=== PATIENT | male | born 1985 | race Caucasian/White ===

== ENCOUNTER 2019-10-20 19:46 | Inpatient (IN) ==
[2019-10-20] MEDS ORDERED: ONDANSETRON INJ 2 MG/ML 2 ML VIAL IV STA ×2 (19:58→21:11)
[2019-10-20] MEDS ORDERED: HYDROmorphone INJ 0.5 MG/0.5 ML SYR IV STA ×2 (19:58→21:49)
[2019-10-20] MEDS ORDERED: HYDROmorphone INJ 1 MG/ML SYRINGE IV STA (21:11)
[2019-10-20] MEDS ORDERED: SODIUM CHLORIDE 0.9% 1000ML 1,000 ML IV SCH (21:45)
[2019-10-20] MEDS ORDERED: KETOROLAC TROMETHAMINE 15 MG/ML VIAL IV STA (21:55)
[2019-10-20 22:45] LABS: Appearance Urine Cloudy (Clear); Bacteria Urine Automated Negative (Negative); Blood Urine 3+ (Negative); Color Urine Dark Yellow; Glucose Urine UA 1+ (Negative); Ketones Urine 1+ (Negative); Leukocyte Esterase Urine Negative (Negative); Nitrite Urine Negative (Negative); Protein Urine 1+ (Negative); RBC Urine Automated >30 /hpf (0-4); Specific Gravity Urine 1.032 (1.000-1.030); Urobilinogen Urine Negative (Negative); pH Urine 5.5 (4.5-7.5)
[2019-10-20 23:05] LABS: Bilirubin Urine Negative (Negative); Ictotest Urine Negative (Negative)
--- NOTE | 2019-10-20 23:32 | Emergency Department Note ---
History of Present Illness General Chief complaint: Kidney Stone Stated complaint: KIDNEY STONE Time Seen by Provider: 10/20/19 19:53 History of Present Illness Maximum Pain Intensity: 6 This is a 34-year-old male that presents to the emergency department via private vehicle with complaints of "kidney stone". The patient notes that he was here earlier today and diagnosed with a kidney stone. He states that he was doing well and was pain-free. He then notes about 2 hours prior to arrival the second time here today he notes the pain sharply increased. He rates the overall discomfort at this time as an 8/10. He points to the left flank that radiates to the left groin. It is sharp in nature. Discomfort overall is an 8/10 but will increase at times. He also vomited secondary to the pain. He does note a history of kidney stones in the past but has not had to see urology as of yet. Home Medications Home Medications Medication Instructions Recorded Confirmed Type cetirizine [Zyrtec] 10 mg PO DAILY PRN 10/20/19 10/20/19 History fluticasone propionate 2 spray INTRANASAL DAILY PRN 10/20/19 10/20/19 History ketorolac 10 mg PO Q6H PRN 10/20/19 10/20/19 History tamsulosin [Flomax] 0.4 mg PO DAILY #5 cap 10/20/19 10/20/19 Rx Allergies Allergy/AdvReac Type Severity Reaction Status Date / Time No Known Allergies Allergy Verified 10/20/19 20:35 Past Med/Surg History Medical History Personal history of kidney stones Surgical History No pertinent past surgical history Social History Preferred Language: Mosotho Communication Ability: Effective Stamp Maker Required: No Beliefs That Will Affect Care: None Current Living Situation: Spouse and Family Other Information That Helps Us Care for You: No Feels Safe at Home: Yes Safety Concerns: Feels Safe At This Time Smoking Status: Never smoker Do You Dip or Chew Tobacco: No ; Second Hand Exposure: No ; Hx Alcohol Use: Yes Alcohol type: beer, wine and hard liquor Hx Substance Use: No Review of Systems A total of 10 systems reviewed and were otherwise negative Physical Exam Vital Signs Vital Signs - 24 hr 10/20/19 19:47 10/20/19 21:35 10/20/19 22:47 Temperature 37.4 C Temperature Source Oral Pulse Rate 106 H 69 Pulse Rate [Radial] 71 69 Pulse Rhythm Regular Pulse Rhythm [Radial] Regular Regular Pulse Strength [Radial] Normal Respiratory Rate 20 18 16 Respiratory Effort / Characteristics Non-Labored Spontaneous Non-Labored Spontaneous Non-Labored Spontaneous Respiratory Depth Normal Normal Normal Respiratory Pattern Regular Regular Blood Pressure 157/98 H Blood Pressure [Right Arm] 141/95 H 129/83 Blood Pressure Mean 117 Blood Pressure Mean [Right Arm] 110 98 Blood Pressure Position Sitting Pulse Oximetry 99 96 97 Oxygen Delivery Method Room Air Room Air Nasal Cannula Oxygen Flow Rate 2 Sepsis Recent Fever Within 48 Hours No Sepsis Action Taken by Nursing No Action Required VITAL SIGNS - Vital signs and nursing notes were reviewed. Stable and afebrile. GENERAL -34-year-old male appearing his stated age who is in no acute distress. Communicates well with provider and answers questions appropriately. SKIN - Without rashes. No meningeal or petechial rash. LUNGS - Chest wall symmetric without accessory muscle use, intercostals retractions, or central cyanosis. Normal vesicular breath sounds CTA B/L. No wheezes, rales, or rhonchi appreciated. CARDIAC - RRR with S1/S2. No murmur, rubs, or gallops appreciated. ABDOMEN - Abdominal contour normal without pulsations or visible masses. BS normoactive all four quadrants. No tenderness, palpable masses, hepatosplenomegaly, or ascites noted. NEUROLOGIC - Cranial nerves II through XII grossly intact. PSYCH - A&O, and cooperates fully with examiner. Pt is very pleasant and interacts well with examiner. Course Administered Medications Sodium Chloride (Nss 1000ml) 1,000 mls @ 125 mls/hr IV .Q8H SCOTT Stop: 11/20/19 01:44 Last Admin: 10/21/19 01:58 Dose: 125 mls/hr Documented by: [id number] Discontinued Medications Hydromorphone HCl (Dilaudid) 0.5 mg IV NOW STA Stop: 10/20/19 19:59 Last Admin: 10/20/19 20:11 Dose: 0.5 mg Documented by: [id number] Hydromorphone HCl (Dilaudid) 1 mg IV NOW STA Stop: 10/20/19 21:12 Last Admin: 10/20/19 21:14 Dose: 1 mg Documented by: [id number] Hydromorphone HCl (Dilaudid) 0.5 mg IV NOW STA Stop: 10/20/19 21:50 Last Admin: 10/20/19 21:52 Dose: 0.5 mg Documented by: [id number] Hydromorphone HCl (Dilaudid) 0.5 mg IV NOW STA Stop: 10/21/19 00:33 Last Admin: 10/21/19 00:40 Dose: 0.5 mg Documented by: [id number] Sodium Chloride (Nss 1000ml) 1,000 mls @ 999 mls/hr IV .Q1H1M SCOTT Stop: 10/20/19 22:45 Last Infusion: 10/21/19 00:44 Dose: 0 mls/hr Documented by: [id number] Admin: 10/20/19 21:38 Dose: 999 mls/hr Documented by: [id number] Promethazine HCl (Phenergan) 12.5 mg in 50.5 mls @ 202 mls/hr IV NOW STA Stop: 10/21/19 00:48 Last Infusion: 10/21/19 01:26 Dose: 0 mls/hr Documented by: [id number] Admin: 10/21/19 01:11 Dose: 202 mls/hr Documented by: [id number] Ketorolac Tromethamine (Toradol) 15 mg IV NOW STA Stop: 10/20/19 21:56 Last Admin: 10/20/19 21:58 Dose: 15 mg Documented by: [id number] Ketorolac Tromethamine (Toradol) 30 mg IV NOW ONE Stop: 10/21/19 02:01 Last Admin: 10/21/19 01:52 Dose: 30 mg Documented by: [id number] Ondansetron HCl (Zofran) 4 mg IV NOW STA Stop: 10/20/19 19:59 Last Admin: 10/20/19 20:11 Dose: 4 mg Documented by: [id number] Ondansetron HCl (Zofran) 4 mg IV NOW STA Stop: 10/20/19 21:12 Last Admin: 10/20/19 21:14 Dose: 4 mg Documented by: [id number] Medical Decision Making Laboratory Data Lab Results 10/20/19 Range/Units 21:35 Urine Color Dark Yellow Urine Appearance Cloudy A (Clear) Urine pH 5.5 (4.5-7.5) Ur Specific [place] 1.032 H (1.000-1.030) Urine Protein 1+ H (Negative) Urine Glucose (UA) 1+ H (Negative) Urine Ketones 1+ H (Negative) Urine Blood 3+ H (Negative) Urine Nitrite Negative (Negative) Urine Bilirubin Negative (Negative) Urine Urobilinogen Negative (Negative) Ur Leukocyte Esterase Negative (Negative) Urine WBC (Auto) 1-5 (0-5) /hpf Urine RBC (Auto) >30 H (0-4) /hpf U Hyaline Cast (Auto) 1-5 (0-5) /lpf U Epithel Cells (Auto) 5-10 H (0-5) /lpf Urine Bacteria (Auto) Negative (Negative) MDM Narrative Patient was seen and evaluated as above in room C 12. Review was performed of nursing notes and vital signs. I did review pertinent previous visits and patient history. After obtaining a thorough history and physical examination the above work up was performed. He was seen here earlier today and has 2 obstructing ureteral calculi measuring up to 5 mm in size. He is nontoxic on examination and does have stable vital signs. I reviewed his previous laboratory work. Patient notes that when he was discharged earlier he was pain- free but the pain over the past 2 hours has been sharply increasing. Urine reveals some blood but no evidence of infection. Options of care were discussed with the patient and he has required several rounds of pain medication here with minimal relief of discomfort. For this reason patient was in agreement for further evaluation and management here in the inpatient setting. Case discussed with the hospitalist. Please refer to further documentation regarding his stay. In the evaluation and treatment of this patient the following differential diagnoses were entertained: UTI, pyelonephritis, obstructing calculi, torsion, appendicitis, diverticulitis, among others. Impression & Plan Calculus of distal left ureter, Intractable pain Discharge Plan Visit Data *Final* Discharge Date/Time: 10/21/19 00:36 Chief Complaint: Kidney Stone Stated Complaint: KIDNEY STONE ED Provider: Stevenson Rhodes ED Midlevel Provider: Tony Costa Discharge Problem: Calculus of distal left ureter, Intractable pain Patient Disposition: Admitted As Inpatient Condition: Good Discharge Instructions Interventions: ED Discharge Assessment Last Done: 10/21/19 00:36
[2019-10-21] MEDS ORDERED: HYDROmorphone INJ 0.5 MG/0.5 ML SYR IV STA (00:32)
[2019-10-21] MEDS: PROMETHAZINE 12.5 MG/50.5 ML BAG IV STA ×2 (00:42→01:11)
--- NOTE | 2019-10-21 01:25 | History and Physical Report ---
DATE OF ADMISSION: 10/20/2019 CHIEF COMPLAINT: Left flank pain. HISTORY OF PRESENT ILLNESS: This is a 34-year-old male with past medical history significant for kidney stones in 2007, which he passed on his own. No other significant past medical history, presents with left flank pain. The patient was in the ER early in the morning, a CAT scan showed two 5 mm distal ureter calculus, improved in the ER and no signs of infection. He was discharged on Flomax and Toradol, but the pain came back and it was severe, so he came back to the ER and received few doses of Dilaudid, the pain is better now, but is coming back.He is hemodynamically stable. UA is negative for infection currently. Denies any other complaints. About a week ago he noticed some tingliness in the tip of his penis and frequent urination, but no blood in the urine. Normal bowel movements. No chest pain, no shortness of breath, no cough, was nauseous earlier when the pain was severe. No headache, no blurred vision, no earache, no runny nose, no sore throat. ALLERGIES: No known drug allergies. PAST MEDICAL HISTORY: As mentioned above. PAST SURGICAL HISTORY: Dental surgery. MEDICATIONS: Flonase. FAMILY HISTORY: Significant for father has hypertension. Maternal grandfather had abdominal cancer, [place]. Paternal grandfather has heart disorder. SOCIAL HISTORY: Single. No smoking, alcohol socially. No drug use. REVIEW OF SYMPTOMS: As per HPI. Rest of review of symptoms negative. PHYSICAL EXAMINATION: GENERAL: The patient is of moderate build, not in acute distress. VITAL SIGNS: Temperature 37.4, pulse 69, respiratory rate 18, blood pressure 129/83, oxygen 97% on 2 liters. HEENT: No pallor, no icterus. Pupils equal, round, reactive to light. NECK: No JVD, no neck masses. CARDIOVASCULAR: S1, S2 heard, regular rate and rhythm, no murmur, no gallop. RESPIRATORY SYSTEM: Normal AP diameter. No accessory muscle use. No wheezing, no crackles. ABDOMEN: Soft, bowel sounds present. Nontender. No CVA tenderness present. CENTRAL NERVOUS SYSTEM: Cranial nerves II-XII grossly intact. Nonfocal. EXTREMITIES: No edema, no erythema. LABORATORY DATA: Urinalysis +1 protein, +1 glucose, +3 blood. Labs done early in the morning showed WBC 8.6, hemoglobin 17.3, hematocrit 49.6, platelets 165. Sodium 141, potassium 4, chloride 111, bicarbonate 27, BUN 14, creatinine 1.2, serum glucose 85, total bilirubin 0.6, calcium 9, AST 11, ALT 30, alkaline phosphatase 107. Lipase 162. CT scan shows two obstructing calculi in distal left ureter measuring up to 5 mm, only mild fullness of the left ureter and there is no hydronephrosis, there is a punctate nonobstructing right renal calculus, prominent mesenteric lymph nodes are nonspecific and may be on reactive basis. ASSESSMENT AND PLAN: This is a 34-year-old male who presents with renal colic. 1. Renal colic with left obstructing distal ureter calculus about 5 cm with only mild fullness of the left ureter. There is no hydronephrosis. Was discharged from the ER in the morning, comes back with severe pain. We will admit to medical floor. IV fluids, IV antiemetics, IV pain meds p.r.n., n.p.o. after midnight. Consult urology in the a.m. for further recommendations. Continue Flomax. 2. Deep venous thrombosis prophylaxis: Sequential compression devices. DISPOSITION: Admit to medical floor. Expect discharge home and follow with family doctor. Level 1 full code. MTDD
[2019-10-21] MEDS ORDERED: ACETAMINOPHEN 325 MG TAB PO PRN (01:45)
[2019-10-21] MEDS ORDERED: CETIRIZINE HCL 10 MG TABLET PO PRN (01:45)
[2019-10-21] MEDS ORDERED: ONDANSETRON INJ 2 MG/ML 2 ML VIAL IV PRN (01:45)
[2019-10-21] MEDS ORDERED: FLUTICASONE PROPIONATE NA SPR 16 GM BTL PRN (01:45)
[2019-10-21] MEDS ORDERED: HYDROmorphone INJ 0.5 MG/0.5 ML SYR IV PRN (01:45)
[2019-10-21] MEDS: SODIUM CHLORIDE 0.9% 1000ML 1,000 ML IV SCH ×2 (01:58→09:51)
[2019-10-21] MEDS ORDERED: KETOROLAC 30 MG/ML VIAL IV ONE (02:00)
[2019-10-21 05:38] LABS: Basophils # (auto) 0.02 K/uL (0-0.2); Basophils % (auto) 0.2 %; Eosinophils # (auto) 0.01 K/uL (0-0.5); Eosinophils % (auto) 0.1 %; Hematocrit (blood only) 45.3 % (42-52); Immature Granulocytes # (auto) 0.04 K/uL (0.00-0.02); Immature Granulocytes % (auto) 0.3 %; Lymphocytes # (auto) 1.73 K/uL (1.2-3.4); Lymphocytes % (auto) 13.1 %; Mean Corpuscular Hemoglobin 31.4 pg (25-34); Mean Corpuscular Hgb Conc 33.1 g/dL (32-36); Mean Corpuscular Volume 94.8 fL (80-100); Mean Platelet Volume 10.4 fL (7.4-10.4); Monocytes # (auto) 1.37 K/uL (0.11-0.59); Monocytes % (auto) 10.4 %; Neutrophils # (auto) 10.03 K/uL (1.4-6.5); Neutrophils % (auto) 75.9 %; Platelet Count 148 K/uL (130-400); RDW Coefficient of Variation 12.8 % (11.5-14.5); RDW Standard Deviation 44.7 fL (36.4-46.3); Red Blood Count 4.78 M/uL (4.7-6.1)
[2019-10-21 06:04] LABS: BUN Creatinine Ratio 12.7 (10-20); Calcium 8.2 mg/dl (8.5-10.1); Creatinine Clr Calc Pharmacy 61.9 ml/min; Est GFR (African American) 66.6; Est GFR (Non-African American) 57.5; Magnesium 2.2 mg/dl (1.8-2.4); Potassium 4.3 mmol/L (3.5-5.1)
[2019-10-21] MEDS: KETOROLAC TROMETHAMINE 15 MG/ML VIAL IV PRN ×2 (08:39→14:34)
[2019-10-21] MEDS ORDERED: TAMSULOSIN HCL 0.4 MG CAP PO SCH (09:00)
--- NOTE | 2019-10-21 15:01 | Urology Consultation ---
Date of Consultation October 21, 2019 Assessment & Plan (1) Renal colic on left side: (2) Calculus of distal left ureter: Patient presented to the ER for second time with an obstructing stone and significant pain and issues. Patient had developed nausea when he went home as well as a severe pain which did not respond to Toradol. He been trying to avoid narcotics. He did require significant IV medication and then was admitted for supportive care and trial of passage. Patient undergoing IV hydration. He was given medications for pain control and management of issues. He is found the Toradol has been very helpful. He is not need further medications other than the Toradol since about 2 AM this morning. He has been doing well. Is up ambulating on initial visit. Patient is currently n.p.o. Discussed options. Discussed known disease. Discussed obstruction. Patient has a 5 mm distal stone approximately 1 cm from the UVJ. Patient also has a second smaller stone proximal to this. Discussed risk benefits. Discussed management. Discussed options for conservative measure and maximum expulsion medical therapy and symptom controlled. Discussed ESWL. Discussed Ureteroscopy with extraction and/or laser lithotripsy. Risks and benefits were discussed. Stone free rates were also discussed as well as possibility of multiple procedures. Ureteral stents were discussed as well as post-operative issues and pain management. All questions were answered. Patient will continue with supportive care. Okay to start diet and start oral hydration. As long as mentioned is able to transition to oral medications for management of discomfort, pain, and other issues will likely be able to be discharged. Patient is motivated to be discharged night if possible. As long as patient does not start developing fevers, severe bleeding, major other issues, significant decrease in urine output, or other major problems agree with plans for a few weeks of maximum expulsion therapy with intervention if patient is unable to pass that stone. History of Present Illness Attending Physician: Ivelisse Ng MD History of Present Illness New consultation for patient with stone, discomfort, obstruction, and ill feelings. Patient developed sudden onset of pain into flank going down and radiating into groin and back in waves comes and goes. Can be severe at times. Discussed and reviewed patient's family history for any history of stone disease. No significant family history of stone. Also, discussed patient's medical surgery history especially related to any history of urinary issues or stone disease. Patient was admitted and is undergoing observation. Patient had previously had a stone in 2007 which he had passed on his own without major bleeding or other issues. He is unsure of the size at that time. He did not require any further intervention or issues secondary to stone and overall did well with hydration and time Allergies Allergy/AdvReac Type Severity Reaction Status Date / Time No Known Allergies Allergy Verified 10/20/19 20:35 Home Medications Home Medications Medication Instructions Recorded Confirmed Type cetirizine [Zyrtec] 10 mg PO DAILY PRN 10/20/19 10/20/19 History fluticasone propionate 2 spray INTRANASAL DAILY PRN 10/20/19 10/20/19 History ketorolac 10 mg PO Q6H PRN 10/20/19 10/20/19 History tamsulosin [Flomax] 0.4 mg PO DAILY #5 cap 10/20/19 10/20/19 Rx Patient History Medical History Personal history of kidney stones Surgical History No pertinent past surgical history Social History Preferred Language: [place]an Communication Ability: Effective 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 Patient is well nourished and well kept. HEENT: Normocephalic Atraumatic. Inspection normal. Cranial Nerves 2-12 Grossly intact. Nares are clear. Neck is supple. Normal inspection of face. Normal inspection of neck. Neurologic: No deficits on inspection. Baseline for motor function and sensory. Psychologic: Normal affect. Respiratory: Nonlabored. No use of accessory muscles. No tachypnea or dyspnea. Cardiovascular: No tachycardia Skin: [place] and Dry. No rashes or visible lesions. Extremities: Moving without issues. No motor deficits on inspection Lymphatics: No edema Abdomen: Soft Non-distended. No acites. No rebound or guarding. Results & Data Vital Signs (Past 12 Hours) Vital Signs Temp Pulse Resp BP Pulse Ox 10/21/19 14:52 94 H 18 151/91 H 96 10/21/19 06:52 36.7 C 65 16 128/80 96 PG Care Time/CCT Total # of Minutes Spent Total Time Spent with Patient: Total time spent is greater than 50% in coordination of care (as documented) at patient's floor/unit and/or counseling patient: Coding Level of Care Code 14614 Inpt Consult Level 5 Diagnoses Renal colic on left side N23 Calculus of distal left ureter N20.1
[2019-10-21] MEDS ORDERED: OXYCODONE/ACETAMINOPHEN 5mg/325mg TAB PO PRN (16:00)
--- NOTE | 2019-10-21 16:00 | Hospitalist Progress Note ---
Date of Service October 21, 2019 Assessment & Plan (1) Calculus of distal left ureter: History of kidney stone and has admitted with a left flank pain with radiation to the left groin No fever and no chills and no increase in white count. Noted to have 5 mm distal left ureteric obstructing stone Was seen by urologist. Appreciate input and recommendation for conservative management right now. Advised to drink plenty of fluid at home Will be discharged home this afternoon (2) Renal colic on left side: Secondary to left ureteric stone We will start oral pain medications and if tolerated will be discharged home this afternoon Admission and Anticipated Discharge Date Admission Date: October 20, 2019 Subjective The patient was seen and examined in the medical floor He was admitted with the left flank and renal angle pain that radiated to the left groin No fever and/or chills Pain is reasonably controlled with intravenous Toradol He has been waiting to be seen by the urologist Review of Systems Review of Systems: All systems reviewed and are unremarkable except as noted below Genitourinary: + flank pain (Is better); no dysuria and no urinary hesitancy Physical Exam Physical Exam: Lying in bed comfortably with anxiety Constitutional: well developed and well nourished; no acute distress and not ill appearing Eyes: PERRL, conjunctivae normal, anicteric sclerae ENMT: external ear and nose normal, oropharynx normal Neck: trachea midline, no thyromegaly Respiratory: normal respiratory effort; no respiratory distress Auscultation: lungs clear to auscultation bilaterally Cardiovascular: Rate/Rhythm: regular rate and regular rhythm Heart Sounds: no murmur Gastrointestinal (Abdomen): Inspection/Auscultation: abdomen normal to inspection and normal bowel sounds Percussion/Palpation: abdomen soft Minimal tenderness involving left renal angle Musculoskeletal: No acute arthritis involving any joints Results & Data Results & Data ([facility]) Vital Signs (Past 12 Hours) Vital Signs Temp Pulse Resp BP Pulse Ox 10/21/19 14:52 94 H 18 151/91 H 96 10/21/19 06:52 36.7 C 65 16 128/80 96 Laboratory Results Short CBC 10/21/19 Range/Units 05:22 WBC 13.20 H (4.8-10.8) K/uL Hgb 15.0 (14.0-18.0) g/dL Hct 45.3 (42-52) % Plt Count 148 (130-400) K/uL BMP 10/21/19 05:22 Sodium 145 Potassium 4.3 Chloride 116 H Carbon Dioxide 23 BUN 20 H Creatinine 1.57 H D Glucose 105 H Calcium 8.2 L Urine 10/20/19 Range/Units 21:35 Urine Color Dark Yellow Urine Appearance Cloudy A (Clear) Urine pH 5.5 (4.5-7.5) Ur Specific [place] 1.032 H (1.000-1.030) Urine Protein 1+ H (Negative) Urine Glucose (UA) 1+ H (Negative) Medications Administered Current Inpatient Medications Acetaminophen (Tylenol) 650 mg PO Q4H PRN PRN Reason: pain/fever Stop: 11/20/19 01:44 Cetirizine HCl (Zyrtec) 10 mg PO DAILY PRN PRN Reason: Allergy Symptoms Stop: 11/20/19 01:44 Fluticasone Propionate (Flonase) 2 sprays NA DAILY PRN PRN Reason: Allergy Symptoms Stop: 11/20/19 01:44 Hydromorphone HCl (Dilaudid) 0.5 mg IV Q3H PRN PRN Reason: Pain Stop: 11/04/19 01:44 Sodium Chloride (Nss 1000ml) 1,000 mls @ 200 mls/hr IV .Q5H SCOTT Stop: 11/20/19 01:44 Last Infusion: 10/21/19 13:41 Dose: 200 mls/hr Documented by: Ketorolac Tromethamine (Toradol) 15 mg IV Q6H PRN PRN Reason: Pain Stop: 10/26/19 01:44 Last Admin: 10/21/19 14:34 Dose: 15 mg Documented by: Ondansetron HCl (Zofran) 4 mg IV Q6H PRN PRN Reason: Nausea Stop: 11/20/19 01:44 Tamsulosin HCl (Flomax) 0.4 mg PO DAILY SCOTT Stop: 11/20/19 08:59 Last Admin: 10/21/19 08:39 Dose: 0.4 mg Documented by:
--- NOTE | 2019-10-22 08:00 | Discharge Summary ---
Date of Service October 22, 2019 Admission HPI Per Admitting Provider DICTATED BY: Jorge Kaiser MD DATE OF ADMISSION: 10/20/2019 CHIEF COMPLAINT: Left flank pain. HISTORY OF PRESENT ILLNESS: This is a 34-year-old male with past medical history significant for kidney stones in 2007, which he passed on his own. No other significant past medical history, presents with left flank pain. The patient was in the ER early in the morning, a CAT scan showed two 5 mm distal ureter calculus, improved in the ER and no signs of infection. He was discharged on Flomax and Toradol, but the pain came back and it was severe, so he came back to the ER and received few doses of Dilaudid, the pain is better now, but is coming back.He is hemodynamically stable. UA is negative for infection currently. Denies any other complaints. About a week ago he noticed some tingliness in the tip of his penis and frequent urination, but no blood in the urine. Normal bowel movements. No chest pain, no shortness of breath, no cough, was nauseous earlier when the pain was severe. No headache, no blurred vision, no earache, no runny nose, no sore throat. Admission Exam Per Admitting Provider GENERAL: The patient is of moderate build, not in acute distress. VITAL SIGNS: Temperature 37.4, pulse 69, respiratory rate 18, blood pressure 129/83, oxygen 97% on 2 liters. HEENT: No pallor, no icterus. Pupils equal, round, reactive to light. NECK: No JVD, no neck masses. CARDIOVASCULAR: S1, S2 heard, regular rate and rhythm, no murmur, no gallop. RESPIRATORY SYSTEM: Normal AP diameter. No accessory muscle use. No wheezing, no crackles. ABDOMEN: Soft, bowel sounds present. Nontender. No CVA tenderness present. CENTRAL NERVOUS SYSTEM: Cranial nerves II-XII grossly intact. Nonfocal. EXTREMITIES: No edema, no erythema. Principal Diagnosis Left ureteral stone with left renal colic Discharge Exam Constitutional well developed and well nourished; no acute distress and not ill appearing Eyes PERRL, conjunctivae normal, anicteric sclerae ENMT external ear and nose normal, oropharynx normal Neck trachea midline, no thyromegaly Respiratory normal respiratory effort; no respiratory distress Auscultation: lungs clear to auscultation bilaterally Cardiovascular Rate/Rhythm: regular rate and regular rhythm Heart Sounds: no murmur Gastrointestinal (Abdomen) Inspection/Auscultation: abdomen normal to inspection and normal bowel sounds Percussion/Palpation: abdomen soft Discharge Data Allergies Allergy/AdvReac Type Severity Reaction Status Date / Time No Known Allergies Allergy Verified 10/20/19 20:35 Consultations 10/20/19 21:53 ED Decision to Admit Stat 10/21/19 08:00 Consult Urology Routine Hospital Course (1) Calculus of distal left ureter: History of kidney stone and has admitted with a left flank pain with radiation to the left groin No fever and no chills and no increase in white count. Noted to have 5 mm distal left ureteric obstructing stone Was seen by urologist. Appreciate input and recommendation for conservative management right now. Advised to drink plenty of fluid at home Will be discharged home this afternoon (2) Renal colic on left side: Secondary to left ureteric stone We will start oral pain medications and if tolerated will be discharged home this afternoon Total Time Total Time Spent Total Time Spent (In Minutes): 35 minutes Total Time Includes: Examination of the Patient, Discharge Planning, Medication Reconciliation and Communication With Other Providers Discharge Plan Discharge Items Patient Disposition: Home - Self-Care Reason For Visit: RENAL COLIC Discharge Diagnosis: Left ureteral stone with left renal colic Condition on Discharge: Good Activity: Resume your previous activity Non-emergency contact: Primary Care Provider Call non-emergency contact if: you have any medication questions and your symptoms worsen Follow-up/Referrals: Chris Faria DO [Primary Care Provider] - (Your doctor's office will call with an appointment within 7 days) Diet: Regular Fluids: 2000ml (8 cups) Addtl Attending Provider Instructions: Drink plenty of fluids so that the stone can be passed Try to use less of narcotic pain medication Pending Studies at Discharge: No Stand-Alone Forms: [employer], Work/School Release (Inpt), Smoking Cessation Medications and DC Order Prescriptions: New oxycodone-acetaminophen [Percocet] 5-325 mg Tablet 1 tab PO Q4H PRN (Reason: pain) 3 Days Qty: 10 RF: 0 ondansetron HCl [Zofran] 4 mg tablet 4 mg PO Q4H PRN (Reason: nausea and vomiting) 3 Days Qty: 10 RF: 0 Continued cetirizine [Zyrtec] 10 mg Tablet 10 mg PO DAILY PRN (Reason: Allergy Symptoms) RF: 0 fluticasone propionate 50 mcg/actuation spray,suspension 2 spray INTRANASAL DAILY PRN (Reason: Allergy Symptoms) RF: 0 tamsulosin [Flomax] 0.4 mg capsule 0.4 mg PO DAILY Qty: 5 RF: 0 ketorolac 10 mg tablet 10 mg PO Q6H PRN (Reason: Pain) RF: 0 Discharge Orders: Discharge Order (Routine); Ordered 10/21/19 Ordered By: Ivelisse Ng Admission Data Admit Date/Time: 10/20/19 23:55 Attending Provider: Ivelisse Ng Admit Provider: Jorge Kaiser Primary Care Provider: Chris Faria Other Providers: Asher Carrera ; Camron Ponce ; Yoan Roche I. ; Amarjit Quinn ; Sandy Dumont ; Lian Madrid ; James Franco ; Fatoumata Lopez Melissa A. ; Oni Gallardo ; Fallon Marc ; Jorge Kaiser Other Interventions: Discharge Summary Assessment (RN) Last Done: 10/21/19 16:45 DC Date/Time DO NOT enter until pt leaves facility: 10/21/19 17:16
== END 2019-10-21 17:16 | disposition home or self-care (01) | DRG 694 ==
LOC: ED 19:46 → 3W 23:55